=== PATIENT | female | born 1980 | race Asian ===

== ENCOUNTER → 2024-05-20 06:17 | Day surgery (SDC) | payer OTHER, SELFPAY | LOC: GI 06:17 | PROVIDERS: ATTENDING PHYSICIAN Specialist | DX: K29.40 Chronic atrophic gastritis without bleeding (principal); K31.7 Polyp of stomach and duodenum; K31.89 Other diseases of stomach and duodenum; K31.A0 Gastric intestinal metaplasia, unspecified; C7A.8 Other malignant neuroendocrine tumors; C7A.092 Malignant carcinoid tumor of the stomach; K29.50 Unspecified chronic gastritis without bleeding | CPT/HCPCS: 43251; 43239; 88305; 88341; 88342; 88365 ==